=== PATIENT | male | born 2005 | race Two or more races ===

== ENCOUNTER → 2024-06-09 | Outpatient (CLI) | payer BC, SELFPAY ==
--- NOTE | 2024-06-09 | XR_ITS ---
Examination: Shoulder,left, 3 views Technique: Shoulder AP internal rotation, AP external rotation, Y view shoulder, 3 views Exam date and time :June 09, 2024 1158 hours INDICATIONS: Injury to the shoulder 2 weeks ago, shoulder pain FINDINGS: No shoulder fracture or dislocation Mild widening at the AC joint, clinical correlation advised IMPRESSION: No shoulder fracture Mild widening at the AC joint, clinical correlation advised, consider bilateral weightbearing AC joint views follow-up
== END | disposition home or self-care (01) ==
PROVIDERS: PCP Family Medicine; Referring Provider Family Medicine; Visit Provider Family Medicine
DX: S49.92XA Unspecified injury of left shoulder and upper arm, initial encounter (principal); X58.XXXA Exposure to other specified factors, initial encounter
CPT/HCPCS: 73030